=== PATIENT | male | born 1985 | race Caucasian/White ===

== ENCOUNTER → 2020-10-22 08:28 | Outpatient (BNVA) | payer MEDICARE, MEDICAID, SELFPAY | PROVIDERS: Family Provider Internal Medicine; PCP Internal Medicine; Referring Provider Family Medicine; Visit Provider Internal Medicine | DX: E23.7 Disorder of pituitary gland, unspecified (principal); R79.89 Other specified abnormal findings of blood chemistry | CPT/HCPCS: 99204 ==

== ENCOUNTER 2020-10-24 07:45 | Outpatient (CLI) | payer MEDICARE, MEDICAID, SELFPAY ==
[2020-10-24 10:53] LABS: Free T4 Free Thyroxine 0.94 ng/dL (0.82-1.77); Testosterone Total 445.3 ng/dL (249-836); Thyroid Stimulating Hormone 0.96 uIU/mL (0.27-4.20)
[2020-10-24 11:26] LABS: Follicle Stimulating Hormone 3.4 mIU/mL (1.5-12.4); Luteinizing Hormone 6.4 mIU/mL (1.7-8.6); Prolactin 15.73 ng/mL (4.0-15.2)
[2020-10-25 10:48] LABS: T3 Total 81 ng/dL (76-181)
[2020-10-29 13:32] LABS: Testosterone, Free 78.4 pg/mL (46.0-224.0)
== END 2020-10-24 07:46 | disposition home or self-care (01) ==
PROVIDERS: PCP Internal Medicine; Visit Provider Internal Medicine
DX: R79.89 Other specified abnormal findings of blood chemistry (principal); E23.7 Disorder of pituitary gland, unspecified
CPT/HCPCS: 36415; 83001; 83002; 84146; 84270; 84402; 84403; 84439; 84443; 84480

== ENCOUNTER 2021-09-01 10:17 | Outpatient (CLI) | payer MEDICARE, MEDICAID, SELFPAY ==
[2021-09-01 10:40] VITALS: BP 128/85; PULSE 98; RESP 19; TEMP 36.4; O2SAT 97; BMI 32.1
[2021-09-01 11:28] VITALS: BP 141/93; PULSE 88; RESP 18; TEMP 36.5; O2SAT 97
[2021-09-01 12:28] VITALS: BP 139/87; PULSE 95; RESP 17; TEMP 36.4; O2SAT 97
== END 2021-09-01 12:28 | disposition home or self-care (01) ==
LOC: OPS 10:21
PROVIDERS: PCP Family Medicine; Visit Provider Family Medicine
DX: U07.1 COVID-19 (principal)
CPT/HCPCS: 96365

== ENCOUNTER 2022-08-09 18:17 | Emergency (ER) | payer MEDICARE, MEDICAID, SELFPAY ==
[2022-08-09] VITALS (13 sets, daily range): BP systolic 117–130; BP diastolic 76–90; PULSE 78–99; RESP 14–18; TEMP 36.5; O2SAT 94–100
--- NOTE | 2022-08-09 19:21 | W.ED.NAVMDI ---
HPI - Nausea/Vomiting/Diarrhea General: Chief complaint: Nausea/Vomiting/Diarrhea Stated complaint: diarrhea for a week Time Seen by Provider: 08/09/22 18:58 History of Present Illness: Patient comes in with diarrhea and abdominal pain. Describes abdominal pain as generalized, cramping, constant. States has had diarrhea for the past week after being on antibiotics 2 different times for a sinus infection. States the diarrhea has slowed down and he has only had 1 bowel movement this morning and nothing since then. States abdominal pain is also improving . Associated nausea: No Associated symtoms: Denies anxiety, change in vision, chest pain, dysuria, headache(s), nausea or palpitations Review of Systems Const: Denies: fever(s) or body aches Eyes: Denies: change in vision or blurry vision ENMT: Denies: throat pain or odynophagia Card: Denies: chest pain or palpitations Resp: Denies: dyspnea or productive cough GI: Reports: abdominal pain and diarrhea; Denies: nausea or vomiting : Denies: flank pain or dysuria Musc: Denies: neck pain or back pain Skin/Breast: Denies: rash or pruritus Neuro: Denies: headache(s) or numbness in extremities Psych: Denies: anxiety or change in appetite Endo: Denies: polyuria or excessive sweating PFSH ED PFSH: Medical History (Updated 08/09/22 @ 20:19 by Imer Frank MD) Allergic rhinitis Anxiety Chronic sinusitis Depression Panic disorder Surgical History Hx of hernia repair S/P ORIF (open reduction internal fixation) fracture Family History Other Cancer Psychiatric illness Social History Smoking and tobacco status: current some day smoker Second hand smoke exposure: No Smoking risk assessment/counseling performed?: No Alcohol intake: current Alcohol intake frequency: 0-2 Drinks per Day Physical Exam Const: COMMON NORMALS: no acute distress, patient oriented x3, healthy appearing and alert HENMT: COMMON NORMALS: normocephalic and atraumatic HEAD & SCALP: normocephalic and atraumatic Eye: COMMON NORMALS: Equal, round and reactive pupils present and EOMs intact bilaterally PUPIL: Yes Equal, round and reactive pupils present Neck/C-Spine: COMMON NORMALS: full ROM and supple Resp: COMMON NORMALS: normal respiratory effort, No retractions and No use of accessory muscles Cardio: COMMON NORMALS: regular rate and regular rhythm RATE: regular rate RHYTHM: regular rhythm GI: COMMON NORMALS: Normal to inspection, nondistended, normoactive bowel sounds present, Soft to palpation and non-tender PALPATION: Yes Soft to palpation Back/Pelvis: COMMON NORMALS: thoracic and lumbar spine normal to inspection and no thoracic nor lumbar tenderness Extremity: COMMON NORMALS: normal to inspection and full ROM Neuro: COMMON NORMALS: patient oriented x3 SENSORIUM/ORIENTATION: Yes alert Psych: COMMON NORMALS: mental status grossly normal and cooperative Skin: COMMON NORMALS: no rashes or lesions noted and no wounds GENERAL SKIN EXAM: no rashes or lesions noted Course Vital Signs: Vital signs: Vital Signs Temperature 97.7 F 08/09/22 18:33 Pulse Rate 78 08/09/22 18:33 Respiratory Rate 14 08/09/22 18:33 Blood Pressure 117/76 08/09/22 19:45 Pulse Oximetry 96 08/09/22 19:45 Oxygen Delivery Me thod 08/09/22 18:33 MDM - Nausea/Vomiting/Diarrhea Medical Decision Making Patient comes in with diarrhea and abdominal pain. Describes abdominal pain as generalized, cramping, constant. States has had diarrhea for the past week after being on antibiotics 2 different times for a sinus infection. States the diarrhea has slowed down and he has only had 1 bowel movement this morning and nothing since then. States abdominal pain is also improving. On physical exam his abdomen is soft, nontender. States he was worried about C. difficile and gave a stool sample to the lab last night. Will check labs, give IV fluids, and reassess. On reassessment I talked to the patient about the test results. Will discharge home at this time with precautions to return for worsening or changing symptoms. Lab Data 08/09/22 19:30 08/09/22 19:30 Laboratory Results WBC 9.6 10^3/uL (4.0-10.0) 08/09/22 19:30 RBC 5.39 10^6/uL (4.1-5.3) H 08/09/22 19:30 Hgb 16.6 g/dL (11.7-16.6) 08/09/22 19: Hct 48.5 % (42.0-52.0) 08/09/22: MCV 90.0 fl (80-94) 08/09/22 19: MCH 30.8 pg (28.0-34.0) 08/09/22: MCHC 34.2 g/dL (30.0-36.0) 08/09/22: RDW 11.8 % (12.1-15.1) L 08/09/22: Plt Count 308 10^3/cmm (130-400) 08/09/22: MPV 8.4 fL (7.4-10.4) 08/09/22: Neut % (Auto) 60.4 % 08/09/22: Lymph % (Auto) 22.4 % 08/09/22: [place] % (Auto) 12.2 % 08/09/22: Eos % (Auto) 4.2 % 08/09/22: Baso % (Auto) 0.4 % 08/09/22: Neut # (Auto) 5.79 10^3/uL (1.8-7.7) 08/09/22: Lymph # (Auto) 2.2 10^3/uL (0.8-4.8) 08/09/22: [place] # (Auto) 1.2 10^3/uL (0.2-0.9) H 08/09/22: Eos # (Auto) 0.4 10^3/uL (0.0-0.8) 08/09/22: Baso # (Auto) 0.0 10^3/uL (0.0-0.1) 08/09/22: Nucleated RBC % (auto) 0 % 08/09/22: Nucleated RBCs # 0.0 /100WBC 08/09/22: Sodium 134 mmol/L (136-145) L 08/09/22: Potassium 4.0 mmol/L (3.5-5.1) 08/09/22:30 Chloride 98 mmol/L (98-107) 08/09/22 19:30 Carbon Dioxide 28 mmol/L (22-29) 08/09/22 19:30 Anion Gap 12.0 (5-19) 08/09/22 19:30 BUN 6 mg/dL (6-20) 08/09/22 19:30 Creatinine 0.9 mg/dL (0.7-1.2) 08/09/22 19:30 GFR Calculation 96.6 mL/min (90-130) 08/09/22 19:30 Glucose 92 mg/dL (65-115) 08/09/22 19:30 Calculated Osmolality 275 mOsm/kg (285-295) L 08/09/22 19:30 Calcium 9.4 mg/dL (8.5-10.5) 08/09/22 19:30 Total Bilirubin 0.7 mg/dL (0.15-1.2) 08/09/22 19:30 AST 21 U/L (0-40) 08/09/22 19:30 ALT 27 U/L (0-41) 08/09/22 19:30 Alkaline Phosphatase 69 U/L (40-130) 08/09/22 19:30 Total Protein 7.6 g/dL (6.6-8.7) 08/09/22 19:30 Albumin 4.4 g/dL (3.5-5.2) 08/09/22 19:30 Globulin 3.2 g/dL (1.3-4.6) 08/09/22 19:30 Discharge Plan Discharge Patient Disposition: Home Clinical Impression: Diarrhea Condition: Stable Prescriptions: No Action Rexulti 1 mg tablet 1 mg PO DAILY fluoxetine [Prozac] 20 mg capsule 20 mg PO DAILY alprazolam [Xanax] 2 mg tablet 2 mg PO QID duloxetine 60 mg capsule,delayed release(DR/EC) 60 mg PO BID pantoprazole 40 mg tablet,delayed release (DR/EC) See Rx Instructions .ROUTE .COMPLEX Qty: 90 3RF Dose Instruction: TAKE 1 TABLET BY MOUTH EVERY DAY FOR STOMACH Rx Instructions: TAKE 1 tablet BID For 14 days, then decrease to 1 TABLET BY MOUTH EVERY DAY FOR STOMACH amoxicillin-pot clavulanate [Augmentin] 500-125 mg tablet 1 tab PO TID Qty: 30 0RF cefpodoxime 200 mg tablet 200 mg PO BID Qty: 14 0RF Rx Instructions: must administer with a meal/food Discharge Orders: Discharge ED (Routine); Ordered 08/09/22 Ordered By: Imer Frank Referrals: David Pedroza DO [Primary Care Provider] - Coding Level of Care Code ED Wool Buyer for Chg Fwd Exam Comprehensive
[2022-08-09] MEDS: sodium chloride 0.9% 1,000 ML 999 ML IV (19:34)
[2022-08-09 19:51] LABS: Basophils % 0.4 %; Eosinophils # 0.4 10^3/uL (0.0-0.8); Eosinophils % 4.2 %; Hematocrit 48.5 % (42.0-52.0); Hemoglobin 16.6 g/dL (11.7-16.6); Lymphocytes # 2.2 10^3/uL (0.8-4.8); Lymphocytes % 22.4 %; Mean Corpuscular HGB Conc 34.2 g/dL (30.0-36.0); Mean Corpuscular Hemoglobin 30.8 pg (28.0-34.0); Mean Platelet Volume 8.4 fL (7.4-10.4); Monocytes # 1.2 10^3/uL (0.2-0.9); Monocytes % 12.2 %; Neutrophils # 5.79 10^3/uL (1.8-7.7); Neutrophils % 60.4 %; Nucleated Red Blood Cells % 0 %; Platelet Count 308 10^3/cmm (130-400); Red Blood Count 5.39 10^6/uL (4.1-5.3); Red Cell Distribution Width 11.8 % (12.1-15.1); White Blood Count 9.6 10^3/uL (4.0-10.0)
[2022-08-09 20:04] LABS: Alanine Aminotransferase 27 U/L (0-41); Albumin Level 4.4 g/dL (3.5-5.2); Alkaline Phosphatase 69 U/L (40-130); Aspartate Amino Transferase 21 U/L (0-40); Blood Urea Nitrogen 6 mg/dL (6-20); Calcium 9.4 mg/dL (8.5-10.5); Carbon Dioxide 28 mmol/L (22-29); Chloride 98 mmol/L (98-107); Globulin 3.2 g/dL (1.3-4.6); Glomerular Filtration Rate 96.6 mL/min (90-130); Glucose 92 mg/dL (65-115); Osmolality Calculated 275 mOsm/kg (285-295); Sodium 134 mmol/L (136-145); Total Bilirubin 0.7 mg/dL (0.15-1.2); Total Protein 7.6 g/dL (6.6-8.7)
== END 2022-08-09 20:34 | disposition home or self-care (01) ==
PROVIDERS: Emergency Provider Emergency Medicine; PCP Family Medicine
DX: R19.7 Diarrhea, unspecified (principal); F17.210 Nicotine dependence, cigarettes, uncomplicated
CPT/HCPCS: 80053; 85025; 96360; 99284; J7030

== ENCOUNTER → 2022-08-17 08:42 | Outpatient (BNVA) | payer MEDICARE, MEDICAID, SELFPAY | PROVIDERS: PCP Family Medicine; Visit Provider Family Medicine | DX: B34.9 Viral infection, unspecified (principal); F32.9 Major depressive disorder, single episode, unspecified; F41.9 Anxiety disorder, unspecified; F32.A Depression, unspecified; R68.82 Decreased libido; E23.7 Disorder of pituitary gland, unspecified; R53.83 Other fatigue; K21.9 Gastro-esophageal reflux disease without esophagitis; R79.89 Other specified abnormal findings of blood chemistry | CPT/HCPCS: 80053; 82040; 82607; 83036; 84146; 84270; 84403; 84443 ==

== ENCOUNTER → 2022-08-30 09:08 | Outpatient (BNVA) | payer MEDICARE, MEDICAID, SELFPAY | PROVIDERS: PCP Family Medicine; Visit Provider Family Medicine | DX: R68.82 Decreased libido (principal); R53.83 Other fatigue; F32.9 Major depressive disorder, single episode, unspecified; F41.9 Anxiety disorder, unspecified | CPT/HCPCS: 82040; 84270; 84403 ==

== ENCOUNTER → 2022-08-31 08:07 | Outpatient (BNVA) | payer MEDICARE, MEDICAID, SELFPAY | PROVIDERS: PCP Family Medicine; Visit Provider Family Medicine | DX: M25.50 Pain in unspecified joint (principal); M79.10 Myalgia, unspecified site; F32.A Depression, unspecified; F32.9 Major depressive disorder, single episode, unspecified; E23.7 Disorder of pituitary gland, unspecified; R53.83 Other fatigue; R68.82 Decreased libido; F41.9 Anxiety disorder, unspecified | CPT/HCPCS: 82040; 84270; 84403; 85651; 86140; 86160; 86162; 86235; 86255; 86376; 86618; 86666; 86757 ==

== ENCOUNTER → 2022-09-16 12:27 | Outpatient (BNVA) | payer MEDICARE, MEDICAID, SELFPAY | PROVIDERS: PCP Family Medicine; Visit Provider Family Medicine | DX: M25.50 Pain in unspecified joint (principal); M79.10 Myalgia, unspecified site; R53.83 Other fatigue; F32.9 Major depressive disorder, single episode, unspecified; B34.9 Viral infection, unspecified; R79.89 Other specified abnormal findings of blood chemistry | CPT/HCPCS: 80053; 85025; 85651; 86140 ==

== ENCOUNTER → 2022-11-02 08:13 | Outpatient (BNVA) | payer MEDICARE, MEDICAID, SELFPAY | PROVIDERS: PCP Family Medicine; Visit Provider Family Medicine | DX: M25.50 Pain in unspecified joint (principal); M79.10 Myalgia, unspecified site; R79.89 Other specified abnormal findings of blood chemistry; F41.9 Anxiety disorder, unspecified; F32.9 Major depressive disorder, single episode, unspecified; B34.9 Viral infection, unspecified | CPT/HCPCS: 80053; 80061; 83036; 85025 ==

== ENCOUNTER → 2022-11-25 10:20 | Outpatient (BNVA) | payer MEDICARE, MEDICAID, SELFPAY | PROVIDERS: PCP Family Medicine; Visit Provider Internal Medicine | DX: M25.50 Pain in unspecified joint (principal); M79.10 Myalgia, unspecified site; M45.0 Ankylosing spondylitis of multiple sites in spine; R79.89 Other specified abnormal findings of blood chemistry; Z11.1 Encounter for screening for respiratory tuberculosis; Z11.59 Encounter for screening for other viral diseases | CPT/HCPCS: 36415; 72202; 73120; 80053; 81003; 82550; 82607; 82728; 82784; 83516; 84100; 84425; 84443; 84550; 85025; 85651; 86036; 86140; 86200; 86431; 86480; 86704; 86803; 86812; 87340; 99204 ==

== ENCOUNTER → 2022-12-16 10:59 | Outpatient (BNVA) | payer MEDICARE, MEDICAID, SELFPAY | PROVIDERS: PCP Family Medicine; Visit Provider Internal Medicine | DX: M25.50 Pain in unspecified joint (principal); M79.10 Myalgia, unspecified site; R79.89 Other specified abnormal findings of blood chemistry; J32.9 Chronic sinusitis, unspecified; E53.8 Deficiency of other specified B group vitamins; R70.0 Elevated erythrocyte sedimentation rate | CPT/HCPCS: 99214 ==

== ENCOUNTER → 2022-12-29 14:14 | Outpatient (BNVA) | payer MEDICARE, MEDICAID, SELFPAY | PROVIDERS: PCP Family Medicine; Visit Provider Otolaryngology | DX: G89.29 Other chronic pain (principal); R07.0 Pain in throat; K21.9 Gastro-esophageal reflux disease without esophagitis; J38.7 Other diseases of larynx; E66.9 Obesity, unspecified; Z68.36 Body mass index [BMI] 36.0-36.9, adult; F32.9 Major depressive disorder, single episode, unspecified; F41.9 Anxiety disorder, unspecified; Z87.891 Personal history of nicotine dependence | CPT/HCPCS: 31575; 99205 ==

== ENCOUNTER → 2023-01-11 07:46 | Outpatient (BNVA) | payer MEDICARE, MEDICAID, SELFPAY | PROVIDERS: PCP Family Medicine; Visit Provider Internal Medicine | DX: R73.03 Prediabetes (principal); R79.89 Other specified abnormal findings of blood chemistry; E23.7 Disorder of pituitary gland, unspecified; Z12.5 Encounter for screening for malignant neoplasm of prostate | CPT/HCPCS: 99214 ==

== ENCOUNTER 2023-01-12 08:17 | Outpatient (CLI) | payer MEDICARE, MEDICAID, SELFPAY ==
[2023-01-12 09:22] LABS: Follicle Stimulating Hormone 5.2 mIU/mL (1.5-12.4); Prostate Specific Antigen Scr 0.77 ng/mL (0-4)
== END 2023-01-12 08:18 | disposition home or self-care (01) ==
LOC: LAB 08:21
PROVIDERS: PCP Family Medicine; Visit Provider Internal Medicine
DX: R73.03 Prediabetes (principal); R79.89 Other specified abnormal findings of blood chemistry; Z12.5 Encounter for screening for malignant neoplasm of prostate
CPT/HCPCS: 83001; 83002; 84403; G0103

== ENCOUNTER 2023-01-13 11:55 | Day surgery (SDC) | payer MEDICARE, MEDICAID, SELFPAY ==
[2023-01-12 09:36] VITALS: BMI 35.8
[2023-01-13] VITALS (10 sets, daily range): BP systolic 120–163; BP diastolic 66–104; PULSE 75–95; RESP 11–20; TEMP 36.1–36.6; O2SAT 98–100
[2023-01-13] MEDS: sodium chloride 0.9% 1,000 ML 30 ML IV (12:17)
--- NOTE | 2023-01-13 12:25 | ANES.PREANE2 ---
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 Operation Date: 01/13/23 13:25 Proposed Procedures p 81271 - Direct laryngoscopy with BX, J38.7(Not Applicable) - Lazraus Palumbo MD Familial anesthetic complications: None Was Beta Jane taken within 24 hours: N/A Was Clonidine taken within 24 hours: N/A Last intake: Intake Last Liquid Date 01/13/23 Last Liquid Time 08:00 Last Solid Date 01/12/23 Last Solid Time 20:00 Social Alcohol (4-5 beers a night) and Tobacco (vapes) Exam alert, oriented x 3, clear to auscultation bilaterally and regular rate & rhythm Airway Mallampati: Class III Dentition: full Comments: Comments: full rodriguez Pulmonary Sleep Apnea (suspected) GI Gastroesophageal Reflux Disease Metabolic Diabetes Mellitus (pre-DM) and Morbid Obesity low Testosterone 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, currently tapered down to prednisone 7 mg PO daily Anesthetic Plan ASA status: 3 Anesthesia: General Risk of > 500 ml blood loss (7ml/kg in children): No Other Pertinent Information patient took valium this morning for anxiety Medications/Allergies Home Medications Medication Instructions Recorded Confirmed Last Taken Type brexpiprazole 1 mg tablet (Rexulti) 1 mg PO DAILY 10/22/20 01/13/23 01/12/23 History fluoxetine 20 mg capsule (Prozac) 20 mg PO DAILY 10/22/20 01/13/23 01/12/23 History alprazolam 2 mg tablet (Xanax) 2 mg PO QID 07/12/22 01/12/23 Unknown History duloxetine 60 mg capsule,delayed 60 mg PO BID 07/12/22 01/13/23 01/12/23 History release pantoprazole 40 mg tablet,delayed See Rx Instructions .Route 07/12/22 01/13/23 01/12/23 Rx release .COMPLEX #90 tabs prednisone 1 mg tablet See Rx Instructions PO DAILY #120 12/21/22 01/13/23 01/12/23 Rx tabs prednisone 5 mg tablet 5 mg PO DAILY #30 tabs 12/21/22 01/13/23 01/12/23 Rx Allergies Allergy/AdvReac Type Severity Reaction Status Date / Time No Known Allergies Allergy Verified 01/11/23 07:32 Current Medications Generic Name Dose Route Start Last Admin Trade Name Freq PRN Reason Stop Dose Admin Sodium Chloride 1,000 mls @ 30 mls/hr 01/13/23 12:00 01/13/23 12:17 Sodium Chloride 0.9% IV 01/14/23 11:59 30 mls/hr .Q24H JOSSUE Administration PFSH Anesthesia Medical History Allergic rhinitis Anxiety Chronic sinusitis Depression Panic disorder Sore throat Surgical History Hx of hernia repair S/P ORIF (open reduction internal fixation) fracture Family History Other Cancer Psychiatric illness Social History Smoking and tobacco status: current some day smoker Second hand smoke exposure: No Smoking risk assessment/counseling performed?: No Alcohol intake: current Alcohol intake frequency: 0-2 Drinks per Day Data Anesthesia Cardiac Studies: No Data to Display
--- NOTE | 2023-01-13 13:16 | W.PM.OPSUD ---
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 PLANNED PROCEDURE: Operation Date: 01/13/23 13:25 Proposed Procedures p [id number] - Direct laryngoscopy with BX, J38.7(Not Applicable) - Lazarus Palumbo MD
[2023-01-13] MEDS: ceFAZolin 2,000 MG in sodium chloride 0.9% (plus) 50 ML 100 MG IV (13:26)
--- NOTE | 2023-01-13 14:11 | P.OP_ITS ---
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 Right laryngeal edema and mass. Procedure done: Direct suspension microscopic laryngoscopy with biopsy of right arytenoid tissue Implants: No implants Specimens removed/disposition: Right arytenoid lesion Pathology: Right arytenoid lesion Surgeon: Lazarus Palumbo MD Anesthesia: General Estimated blood loss: 10 mL Complications: No complications encountered Findings: Patient will found on flexible laryngoscopy to have a right arytenoid soft tissue lesion. Brief History: 37-year-old male patient with sore throat/chronic throat pain found to have a right arytenoid lesion. Being brought to the operating room at this time to undergo direct suspension microscopic laryngoscopy and biopsy. Procedure risks and complications were explained and understood. Informed consent was granted and witnessed. Risks discussed included bleeding infection sore throat voice change for recurrence need for additional treatment and anesthetic risks. Procedure: Description of procedure: The patient was placed on the operating table in the supine position. Adequate general endotracheal tube anesthesia was obtained. He was given Ancef IV for prophylaxis and Decadron to help with postoperative edema. The table was rotated 90 degrees. His head was dropped 15 degrees to the horizontal. His eyes were taped shut and head drape was applied in usual fashion. A timeout was accomplished identifying the patient date of plan procedure allergies fire risk and medications given. With all in agreement the procedure continued. A tooth guard was placed over his upper dentition. An anterior commissure laryngoscope was placed and evaluation of the larynx was accomplished throughout. Abnormality was generalized edema of the epiglottis and AE fold tissue. There was an irregular lesion overlying the right arytenoid which was biopsied in a piecemeal fashion with microlaryngeal cup forceps. Then a cottonoids soaked in 1-1000 epinephrine was applied to the area. The larynx had previously been treated with an LTA. Third of several minutes the epinephrine cottonoid was removed. No bleeding was seen. The suspension was taken down. And the scope was removed. The throat was suctioned clean. The scarred was removed. Patient's head was returned to the upright position. Head drape and tape were removed. Patient was then returned to anesthesia for wake- up and extubation. He tolerated the procedure well had an estimated blood loss of 10 mL and arrived in recovery in stable condition.
--- NOTE | 2023-01-13 15:45 | PC.NURSE ---
pt declined any pain medication prior to discharge stating he did not like taking narcotics.
== END 2023-01-13 15:35 | disposition home or self-care (01) ==
PROVIDERS: PCP Family Medicine; Visit Provider Otolaryngology
PROC: 0CJS8ZZ Inspection of Larynx, Via Natural or Artificial Opening Endoscopic (ICD-10-PCS; CPT 31536; principal; 2023-01-13 13:15)
DX: J38.7 Other diseases of larynx (principal); K21.9 Gastro-esophageal reflux disease without esophagitis; R73.03 Prediabetes; E66.01 Morbid (severe) obesity due to excess calories; Z68.35 Body mass index [BMI] 35.0-35.9, adult; M13.80 Other specified arthritis, unspecified site; Z79.52 Long term (current) use of systemic steroids; F41.9 Anxiety disorder, unspecified; F32.A Depression, unspecified; F17.290 Nicotine dependence, other tobacco product, uncomplicated
CPT/HCPCS: 31536; 88305; J0330; J0690; J1100; J2250; J2704; J3010; J7030

== ENCOUNTER → 2023-01-21 08:43 | Outpatient (BNVA) | payer MEDICARE, MEDICAID, SELFPAY | PROVIDERS: PCP Family Medicine; Visit Provider Otolaryngology | DX: T78.40XA Allergy, unspecified, initial encounter (principal); Z48.89 Encounter for other specified surgical aftercare; J38.7 Other diseases of larynx; R07.0 Pain in throat; X58.XXXA Exposure to other specified factors, initial encounter | CPT/HCPCS: 99212 ==

== ENCOUNTER → 2023-02-11 09:02 | Outpatient (BNVA) | payer MEDICARE, MEDICAID, SELFPAY | PROVIDERS: PCP Family Medicine; Visit Provider Internal Medicine | DX: E23.7 Disorder of pituitary gland, unspecified (principal); R73.03 Prediabetes; R79.89 Other specified abnormal findings of blood chemistry | CPT/HCPCS: 99214 ==

== ENCOUNTER 2023-03-28 08:19 | Outpatient (CLI) | payer MEDICARE, MEDICAID, SELFPAY ==
[2023-03-28 08:47] LABS: Basophils % 0.4 %; Eosinophils # 0.3 10^3/uL (0.0-0.8); Eosinophils % 3.3 %; Hematocrit 46.8 % (42.0-52.0); Hemoglobin 15.8 g/dL (11.7-16.6); Lymphocytes # 2.5 10^3/uL (0.8-4.8); Mean Corpuscular HGB Conc 33.8 g/dL (30.0-36.0); Mean Corpuscular Hemoglobin 29.9 pg (28.0-34.0); Mean Corpuscular Volume 88.5 fl (80-94); Mean Platelet Volume 8.6 fL (7.4-10.4); Monocytes # 0.7 10^3/uL (0.2-0.9); Monocytes % 7.5 %; Neutrophils # 5.58 10^3/uL (1.8-7.7); Neutrophils % 61.5 %; Nucleated Red Blood Cells % 0 %; Platelet Count 276 10^3/cmm (130-400); Red Blood Count 5.29 10^6/uL (4.1-5.3); White Blood Count 9.1 10^3/uL (4.0-10.0)
[2023-03-28 09:05] LABS: Erythrocyte Sedimentation Rate 16 mm/hr (0-10)
[2023-03-28 09:14] LABS: Alanine Aminotransferase 26 U/L (0-41); Alkaline Phosphatase 67 U/L (40-130); Aspartate Amino Transferase 23 U/L (0-40); Blood Urea Nitrogen 7 mg/dL (6-20); C Reactive Protein 13.7 mg/L (0.0-4.9); Calcium 8.9 mg/dL (8.5-10.5); Carbon Dioxide 24 mmol/L (22-29); Chloride 101 mmol/L (98-107); Creatine Phosphokinase 104 U/L (39-308); Glomerular Filtration Rate 76.2 mL/min (90-130); Glucose 149 mg/dL (65-115); Osmolality Calculated 287 mOsm/kg (285-295); Sodium 138 mmol/L (136-145); Total Bilirubin 0.9 mg/dL (0.15-1.2)
[2023-03-28 09:17] LABS: Anion Gap 16.9 (5-19); Potassium 3.9 mmol/L (3.5-5.1)
[2023-03-28 09:43] LABS: Add Urine Microscopic? NO; Charge for UA Resulting for Rev
[2023-03-28 10:17] LABS: Bilirubin Urine Neg (Negative); Blood Urine Neg (Negative); Glucose Urine UA Norm (Normal); Ketones Urine Negative (Negative); Leukocyte Esterase Urine Negative (Negative); Nitrate Urine Negative (Negative); Protein Urine Neg (Negative); Urine Appearance Clear (CLEAR); Urine Color Yellow (Yellow); Urobilinogen Urine 1 mg/dL (Negative); pH Urine 5 (5-7)
[2023-04-05 14:28] LABS: ANCA Screen NEGATIVE (NEGATIVE)
== END 2023-03-28 08:20 | disposition home or self-care (01) ==
LOC: LAB 08:24
PROVIDERS: PCP Family Medicine; Visit Provider Internal Medicine
DX: M25.50 Pain in unspecified joint (principal); M79.10 Myalgia, unspecified site; R79.89 Other specified abnormal findings of blood chemistry; Z79.52 Long term (current) use of systemic steroids
CPT/HCPCS: 36415; 80053; 81003; 82550; 83516; 85025; 85651; 86036; 86140

== ENCOUNTER → 2023-03-31 13:21 | Outpatient (BNVA) | payer MEDICARE, MEDICAID, SELFPAY | PROVIDERS: PCP Family Medicine; Visit Provider Internal Medicine | DX: M25.50 Pain in unspecified joint (principal); E53.8 Deficiency of other specified B group vitamins; R70.0 Elevated erythrocyte sedimentation rate; Z79.52 Long term (current) use of systemic steroids; E29.1 Testicular hypofunction | CPT/HCPCS: 99214 ==

== ENCOUNTER → 2023-05-18 08:57 | Outpatient (BNVA) | payer MEDICARE, MEDICAID, SELFPAY | PROVIDERS: PCP Family Medicine; Referring Provider Internal Medicine; Visit Provider Internal Medicine | DX: E23.7 Disorder of pituitary gland, unspecified (principal); R73.03 Prediabetes; R79.89 Other specified abnormal findings of blood chemistry | CPT/HCPCS: 99213; 99214 ==

== ENCOUNTER 2023-07-19 08:26 | Outpatient (CLI) | payer MEDICARE, MEDICAID, SELFPAY ==
[2023-07-19 09:45] LABS: Estmated Average Glucose 120; Hemoglobin A1C 5.8 % (4.0-6.0)
[2023-07-23 19:00] LABS: Testosterone, Free 50.3 pg/mL (46.0-224.0)
== END 2023-07-19 08:27 | disposition home or self-care (01) ==
LOC: LAB 08:29
PROVIDERS: PCP Family Medicine; Visit Provider Internal Medicine
DX: R73.03 Prediabetes (principal); R79.89 Other specified abnormal findings of blood chemistry
CPT/HCPCS: 36415; 83036; 84402; 84403

== ENCOUNTER → 2023-07-26 10:38 | Outpatient (BNVA) | payer MEDICARE, MEDICAID, SELFPAY | PROVIDERS: PCP Family Medicine; Visit Provider Internal Medicine | DX: R73.03 Prediabetes (principal); R79.89 Other specified abnormal findings of blood chemistry; Z12.5 Encounter for screening for malignant neoplasm of prostate; E23.7 Disorder of pituitary gland, unspecified | CPT/HCPCS: 99214 ==

== ENCOUNTER 2023-08-09 13:00 | Outpatient (CLI) | payer MEDICARE, MEDICAID, SELFPAY | END 2023-08-09 13:01 | disposition home or self-care (01) | LOC: SLEEP 08-10 12:48 | PROVIDERS: PCP Family Medicine; Visit Provider Clinical Nurse Specialist Adult Health | DX: G47.33 Obstructive sleep apnea (adult) (pediatric) (principal); G47.36 Sleep related hypoventilation in conditions classified elsewhere | CPT/HCPCS: G0399 ==

== ENCOUNTER → 2023-10-06 14:16 | Outpatient (BNVA) | payer MEDICARE, MEDICAID, SELFPAY | PROVIDERS: PCP Clinical Nurse Specialist Adult Health; Visit Provider Internal Medicine Rheumatology | DX: M25.552 Pain in left hip (principal); Z79.899 Other long term (current) drug therapy; M06.041 Rheumatoid arthritis without rheumatoid factor, right hand; M06.042 Rheumatoid arthritis without rheumatoid factor, left hand; Z71.85 Encounter for immunization safety counseling | CPT/HCPCS: 99214 ==

== ENCOUNTER 2023-10-14 16:00 | Outpatient (CLI) | payer MEDICARE, MEDICAID, SELFPAY ==
[2023-10-14 16:36] LABS: Basophils # 0.1 10^3/uL (0.0-0.1); Basophils % 0.6 %; Eosinophils # 0.2 10^3/uL (0.0-0.8); Eosinophils % 2.9 %; Hematocrit 44.6 % (37-53); Lymphocytes % 24.4 %; Mean Corpuscular HGB Conc 33.6 g/dL (30-55); Mean Corpuscular Hemoglobin 29.9 pg (27-33); Mean Platelet Volume 8.8 fL (7.4-10.4); Monocytes # 0.8 10^3/uL (0.2-0.9); Monocytes % 9.2 %; Neutrophils # 5.18 10^3/uL (1.8-7.7); Neutrophils % 62.5 %; Nucleated Red Blood Cells % 0 %; Platelet Count 267 10^3/cmm (157-399); Red Blood Count 5.01 10^6/uL (3.85-5.65); Red Cell Distribution Width 12.2 % (12.1-15.1); White Blood Count 8.28 10^3/uL (3.29-11.43)
[2023-10-14 16:55] LABS: Alanine Aminotransferase 24 U/L (0-41); Albumin Level 4.2 g/dL (3.5-5.2); Alkaline Phosphatase 59 U/L (40-130); Anion Gap 11.9 (5-19); Aspartate Amino Transferase 21 U/L (0-40); Blood Urea Nitrogen 7 mg/dL (6-20); Calcium 8.7 mg/dL (8.5-10.5); Carbon Dioxide 26 mmol/L (22-29); Chloride 103 mmol/L (98-107); Globulin 2.6 g/dL (1.3-4.6); Glucose 93 mg/dL (65-115); Osmolality Calculated 282 mOsm/kg (285-295); Potassium 3.9 mmol/L (3.5-5.1); Sodium 137 mmol/L (136-145); Total Bilirubin 0.7 mg/dL (0.15-1.2); Total Protein 6.8 g/dL (6.6-8.7)
[2023-10-14 17:19] LABS: C Reactive Protein 3.3 mg/L (0.0-4.9); Chol HDL Ratio 6.42 mg/dL (1.0-5.00); Cholesterol 212 mg/dL (0-200); HDL Cholesterol 33 mg/dL (60-100); LDL Cholesterol Calculated 156 mg/dL (50-129); LDL HDL Ratio 4.73 RATIO (0.00-3.22); Prostate Specific Antigen Scr 0.71 ng/mL (0-4); Triglycerides 113 mg/dL (0-150)
[2023-10-14 17:53] LABS: 25 Hydroxy Vitamin D 12 ng/mL (30-100)
[2023-10-20 15:40] LABS: Testosterone, Free 80.4 pg/mL (46.0-224.0)
== END 2023-10-14 16:01 | disposition home or self-care (01) ==
LOC: LAB 16:01
PROVIDERS: Internal Medicine; PCP Clinical Nurse Specialist Adult Health; Visit Provider Internal Medicine Rheumatology
DX: Z12.5 Encounter for screening for malignant neoplasm of prostate (principal); M25.552 Pain in left hip; E23.7 Disorder of pituitary gland, unspecified; R79.89 Other specified abnormal findings of blood chemistry; Z79.899 Other long term (current) drug therapy
CPT/HCPCS: 36415; 80053; 80061; 82248; 82306; 84402; 84403; 85025; 86140; G0103

== ENCOUNTER → 2023-11-09 09:05 | Outpatient (BNVA) | payer MEDICARE, MEDICAID, SELFPAY | PROVIDERS: PCP Clinical Nurse Specialist Adult Health; Visit Provider Internal Medicine | DX: E23.7 Disorder of pituitary gland, unspecified (principal); R73.03 Prediabetes; R79.89 Other specified abnormal findings of blood chemistry; E78.5 Hyperlipidemia, unspecified | CPT/HCPCS: 99214 ==

== ENCOUNTER 2024-04-02 13:03 | Outpatient (CLI) | payer MEDICARE, MEDICAID, SELFPAY ==
[2024-04-02 14:05] LABS: Alanine Aminotransferase 22 U/L (0-41); Albumin Level 4.3 g/dL (3.5-5.2); Alkaline Phosphatase 69 U/L (40-130); Anion Gap 16.9 (5-19); Aspartate Amino Transferase 18 U/L (0-40); Blood Urea Nitrogen 8 mg/dL (6-20); Calcium 8.8 mg/dL (8.5-10.5); Carbon Dioxide 23 mmol/L (22-29); Chloride 100 mmol/L (98-107); Chol HDL Ratio 5.66 mg/dL (1.0-5.00); Cholesterol 198 mg/dL (0-200); Globulin 2.7 g/dL (1.3-4.6); Glomerular Filtration Rate 75.7 mL/min (90-130); Glucose 115 mg/dL (65-115); HDL Cholesterol 35 mg/dL (60-100); LDL Cholesterol Calculated 134 mg/dL (50-129); LDL HDL Ratio 3.83 RATIO (0.00-3.22); Osmolality Calculated 281 mOsm/kg (285-295); Potassium 3.9 mmol/L (3.5-5.1); Sodium 136 mmol/L (136-145); Total Bilirubin 0.8 mg/dL (0.15-1.2); Triglycerides 147 mg/dL (0-150)
[2024-04-02 14:11] LABS: Testosterone Total 448.5 ng/dL (249-836)
== END 2024-04-02 13:04 | disposition home or self-care (01) ==
LOC: LAB 13:05
PROVIDERS: PCP Clinical Nurse Specialist Adult Health; Visit Provider Internal Medicine
DX: E23.7 Disorder of pituitary gland, unspecified (principal); R73.03 Prediabetes; R79.89 Other specified abnormal findings of blood chemistry; E78.5 Hyperlipidemia, unspecified; M25.552 Pain in left hip; Z79.899 Other long term (current) drug therapy
CPT/HCPCS: 36415; 80053; 80061; 82248; 84403

== ENCOUNTER → 2024-04-03 08:45 | Outpatient (BNVA) | payer MEDICARE, MEDICAID, SELFPAY | PROVIDERS: PCP Clinical Nurse Specialist Adult Health; Visit Provider Internal Medicine | DX: R79.89 Other specified abnormal findings of blood chemistry (principal); R73.03 Prediabetes; E23.7 Disorder of pituitary gland, unspecified; Z12.5 Encounter for screening for malignant neoplasm of prostate; M79.10 Myalgia, unspecified site; R53.83 Other fatigue | CPT/HCPCS: 99214 ==

== ENCOUNTER → 2024-06-21 10:55 | Outpatient (BNVA) | payer MEDICARE, MEDICAID, SELFPAY | PROVIDERS: PCP Clinical Nurse Specialist Adult Health; Visit Provider Internal Medicine Rheumatology | DX: M06.041 Rheumatoid arthritis without rheumatoid factor, right hand (principal); M06.042 Rheumatoid arthritis without rheumatoid factor, left hand; Z79.899 Other long term (current) drug therapy; Z71.85 Encounter for immunization safety counseling; Z79.52 Long term (current) use of systemic steroids | CPT/HCPCS: 99214 ==

== ENCOUNTER → 2024-12-20 11:37 | Outpatient (BNVA) | payer MEDICARE, MEDICAID, SELFPAY | PROVIDERS: PCP Clinical Nurse Specialist Adult Health; Visit Provider Internal Medicine Rheumatology | DX: M06.041 Rheumatoid arthritis without rheumatoid factor, right hand (principal); M06.042 Rheumatoid arthritis without rheumatoid factor, left hand; Z79.899 Other long term (current) drug therapy; Z71.85 Encounter for immunization safety counseling; M54.9 Dorsalgia, unspecified; G89.29 Other chronic pain | CPT/HCPCS: 99214 ==

== ENCOUNTER → 2025-03-22 07:25 | Outpatient (BNVA) | payer MEDICARE, MEDICAID, SELFPAY | PROVIDERS: PCP Clinical Nurse Specialist Adult Health; Visit Provider Clinical Nurse Specialist Adult Health | DX: R79.89 Other specified abnormal findings of blood chemistry (principal) | CPT/HCPCS: 82040; 84270; 84403; 85025 ==